=== PATIENT | male | born 1945 | race Caucasian/White ===

== ENCOUNTER 2017-07-06 14:30 | Emergency (ER) | payer OTHER, MEDICARE ==
--- NOTE | 2017-07-06 15:11 | EDM.PDOC ---
ED HPI GENERAL MEDICAL PROBLEM - General Chief Complaint: Lower Extremity Injury/Pain Stated Complaint: BACK PAIN Time Seen by Provider: 07/06/17 14:33 - History of Present Illness INITIAL COMMENTS - FREE TEXT/NARRATIVE: HISTORY AND PHYSICAL: History of present illness: Patient's a 71-year-old male had recent lumbar surgery who presents with a concern of evaluation for some paresthesia to the dorsal aspect of his right foot he denies any incontinence or retention of bowel or bladder or any other complaints and no fever chills no headache no back pain or other concern Review of systems: As per history of present illness and below otherwise all systems reviewed and negative. Past medical history: As per history of present illness and as reviewed below otherwise noncontributory. Surgical history: As per history of present illness and as reviewed below otherwise noncontributory. Social history: No reported history of drug or alcohol abuse. Family history: As per history of present illness and as reviewed below otherwise noncontributory. Physical exam: HEENT: Atraumatic, normocephalic, pupils reactive, negative for conjunctival pallor or scleral icterus, mucous membranes moist, throat clear, neck supple, nontender, trachea midline. Lungs: Clear to auscultation, breath sounds equal bilaterally, chest nontender. Heart: S1S2, regular, negative for clicks, rubs, or JVD. Abdomen: Soft, nondistended, nontender. Negative for masses or hepatosplenomegaly. Negative for costovertebral tenderness. Pelvis: Stable nontender. Genitourinary: Deferred. Rectal: Deferred. Extremities: Atraumatic, negative for cords or calf pain. Neurovascular unremarkable. Neuro: Awake, alert, oriented. Cranial nerves II through XII unremarkable. Cerebellum unremarkable. Motor and sensory unremarkable throughout. Exam nonfocal. Back: Wound is without erythema discharge well-appearing with no hematoma or tenderness to palpation Patient is able stand on his toes back hydroceles Diagnostics: None Therapeutics: None Impression: #1 medical screening exam #2 neuropathy #3 observation status post lumbar surgery Definitive disposition and diagnosis as appropriate pending reevaluation and review of above. Lower Back Pain Score (Numeric/FACES): 4 - Related Data Allergies Allergy/AdvReac Type Severity Reaction Status Date / Time Sulfa (Sulfonamide Allergy Cannot Verified 07/06/17 14:36 Antibiotics) Remember Home Meds: Home Meds Acetaminophen with Codeine [Acetaminophen-Cod #3] 2 tab PO Q6H PRN 07/06/17 [ History] Diltiazem [Cardizem CD] 120 mg PO DAILY 07/06/17 [History] FLUoxetine [PROzac] 40 mg PO DAILY 07/06/17 [History] Phentermine HCl 37.5 mg PO DAILY 07/06/17 [History] Sennosides/Docusate Sodium [Senna S Tablet] 1 each PO BID 07/06/17 [History] atorvaSTATin [Lipitor] 10 mg PO BEDTIME 07/06/17 [History] metFORMIN [Glucophage] 500 mg PO BIDMEALS 07/06/17 [History] Past Medical History Cardiovascular History: Reports: None Respiratory History: Reports: None Gastrointestinal History: Reports: None Neurological History: Reports: None Psychiatric History: Reports: None Endocrine/Metabolic History: Reports: Diabetes, Type II Dermatologic History: Reports: None - Past Surgical History HEENT Surgical History: Reports: None Respiratory Surgical History: Reports: None GI Surgical History: Reports: Appendectomy, Hernia, Inguinal Neurological Surgical History: Reports: None Musculoskeletal Surgical History: Reports: Other (See Below) Other Musculoskeletal Surgeries/Procedures:: back surgery Social & Family History - Tobacco Use Smoking Status *Q: Never Smoker Years of Tobacco use: 20 Used Tobacco, but Quit: Yes Month Tobacco Last Used: 1985 - Alcohol Use Days Per Week of Alcohol Use: 1 Number of Drinks Per Day: 1 Total Drinks Per Week: 1 - Recreational Drug Use Recreational Drug Use: No Drug Use in Last 12 Months: No Review of Systems - Review of Systems Review Of Systems: ROS reveals no pertinent complaints other than HPI. ED EXAM, GENERAL - Physical Exam Exam: See Below (See dictation) Course - Vital Signs Text/Narrative:: I discussed case with neurosurgery who operated on this patient I reviewed physical findings patient's follow-up appointment will be expedited the office will call patient neurosurgery request Sindy I discussed all the above with patient who agrees and will return as needed as discussed for any concerns Last Recorded V/S: Last Vital Signs Temp 36.5 C 07/06/17 14:38 Pulse 91 07/06/17 14:38 Resp 20 07/06/17 14:38 BP 134/110 H 07/06/17 14:38 Pulse Ox 98 07/06/17 14:38 Departure - Departure Time of Disposition: 15:11 Disposition: Home, Self-Care 01 Condition: Good Clinical Impression: Neuropathy, Encounter for medical screening examination - Discharge Information Referrals: PCP,None [Primary Care Provider] - Additional Instructions: The following information is given to patients seen in the emergency department who are being discharged to home. This information is to outline your options for follow-up care. We provide all patients seen in our emergency department with a follow-up referral. The need for follow-up, as well as the timing and circumstances, are variable depending upon the specifics of your emergency department visit. If you don't have a primary care physician on staff, we will provide you with a referral. We always advise you to contact your personal physician following an emergency department visit to inform them of the circumstance of the visit and for follow-up with them and/or the need for any referrals to a consulting specialist. The emergency department will also refer you to a specialist when appropriate. This referral assures that you have the opportunity for followup care with a specialist. All of these measure are taken in an effort to provide you with optimal care, which includes your followup. Under all circumstances we always encourage you to contact your private physician who remains a resource for coordinating your care. When calling for followup care, please make the office aware that this follow-up is from your recent emergency room visit. If for any reason you are refused follow-up, please contact the [facility] emergency department at and asked to speak to the emergency department charge nurse. Neurontin as prescribed follow-up spine surgeon as discussed they will call you to expedite your appointment return as needed as discussed continue current medications
[2017-07-06 15:39] VITALS: BP 106/60
== END 2017-07-06 15:25 | disposition home or self-care (01) ==
LOC: MW.ED 14:30
DX: E11.40 Type 2 diabetes mellitus with diabetic neuropathy, unspecified (principal); Z88.2 Allergy status to sulfonamides; Z79.84 Long term (current) use of oral hypoglycemic drugs; Z79.899 Other long term (current) drug therapy; Z90.49 Acquired absence of other specified parts of digestive tract; Z98.1 Arthrodesis status
CPT/HCPCS: 99282; 99284

== ENCOUNTER 2017-09-19 18:32 | Emergency (ER) | payer OTHER, MEDICARE ==
--- NOTE | 2017-09-19 19:59 | EDM.PDOC ---
ED HPI GENERAL MEDICAL PROBLEM - General Chief Complaint: Flank Pain Stated Complaint: PT FELL AT HOME Time Seen by Provider: 09/19/17 19:57 Source of Information: Reports: Patient History Limitations: Reports: No Limitations - History of Present Illness INITIAL COMMENTS - FREE TEXT/NARRATIVE: HISTORY AND PHYSICAL: [] 71-year-old male presents with lower back pain on the right after having fallen from a standing position onto a metal History of Present Illness: []Patient fell approximately 1:00 this afternoon denies any head injury Review of Systems: As per history of present illness and below otherwise all systems reviewed and negative. Past medical history: As per history of present illness and as reviewed below otherwise noncontributory. Surgical history: As per history of present illness and as reviewed below otherwise noncontributory. Social history: No reported history of drug or alcohol abuse. Family history: As per history of present illness and as reviewed below otherwise noncontributory. Physical exam: Alert and oriented answering questions appropriately speaking in full sentences without any shortness breath HEENT: Atraumatic, normocehpalic, pupils reactive, negative for conjunctival pallor or scleral icterus, mucous membranes moist, throat clear, neck supple, nontender, trachea midline. Lungs: Clear to auscultation, breath sounds equal bilaterally, chest non tender. Heart: S1S2, regular, negative for clicks, rubs, or JVD. Abdomen: Soft, nondistended, nontender. Negative for masses or hepatossplenmegaly. Positive for right costovertebral tenderness. No ecchymosis noted. No abrasion to skin. Pelvis: Stable nontender. Genitourinary: Deferred. Rectal: Deferred Extremities: Atraumatic, negative for cords or calf pain. Neurovascular unremarkable. Neuro: Awake, alert, oriented. Cranial nerves II through XII unremarkable. Cerebellum unremarkable. Motor and sensory unremarkable throughout. Exam nonfocal. Diagnostics: [Abdominal upright and flat] UA Therapeutics: [] Impression: [Lower back pain UTI] Plan: [Discharged to home Ciprofloxacin Increase fluid intake of water Follow-up with Rhiannon Alicia NP in 1 week or if not] Definitive disposition and diagnosis as appropriate pending reevaluation and review of above. Right Flank Pain Score (Numeric/FACES): 10 - Related Data Allergies Allergy/AdvReac Type Severity Reaction Status Date / Time Sulfa (Sulfonamide Allergy Cannot Verified 09/19/17 18:46 Antibiotics) Remember Home Meds: Home Meds Acetaminophen with Codeine [Acetaminophen-Cod #3] 2 tab PO Q6H PRN 07/06/17 [ History] Diltiazem [Cardizem CD] 120 mg PO DAILY 07/06/17 [History] FLUoxetine [PROzac] 40 mg PO DAILY 07/06/17 [History] atorvaSTATin [Lipitor] 10 mg PO BEDTIME 07/06/17 [History] metFORMIN [Glucophage] 500 mg PO DAILY 07/06/17 [History] Ciprofloxacin HCl [Cipro] 500 mg PO Q12HR #10 tablet 09/19/17 [Rx] Meloxicam 15 mg PO DAILY 09/19/17 [History] Past Medical History Cardiovascular History: Reports: None, Arrhythmia, High Cholesterol Respiratory History: Reports: None Gastrointestinal History: Reports: None Neurological History: Reports: None Psychiatric History: Reports: None Endocrine/Metabolic History: Reports: Diabetes, Type II Dermatologic History: Reports: None - Infectious Disease History Infectious Disease History: Reports: Chicken Pox, Measles - Past Surgical History HEENT Surgical History: Reports: None Respiratory Surgical History: Reports: None GI Surgical History: Reports: Appendectomy, Hernia, Inguinal Neurological Surgical History: Reports: None Musculoskeletal Surgical History: Reports: Other (See Below) Other Musculoskeletal Surgeries/Procedures:: back surgery Social & Family History - Family History Family Medical History: Noncontributory - Tobacco Use Smoking Status *Q: Never Smoker Years of Tobacco use: 20 Used Tobacco, but Quit: Yes Month Tobacco Last Used: 1985 - Alcohol Use Days Per Week of Alcohol Use: 1 Number of Drinks Per Day: 1 Total Drinks Per Week: 1 - Recreational Drug Use Recreational Drug Use: No Drug Use in Last 12 Months: No ED ROS GENERAL - Review of Systems Review Of Systems: ROS reveals no pertinent complaints other than HPI. ED EXAM,LOWER BACK PAIN/INJURY - Physical Exam Exam: See Below (See dictation) Course - Vital Signs Last Recorded V/S: Last Vital Signs Temp 37.0 C 09/19/17 18:43 Pulse 61 09/19/17 18:43 Resp 18 09/19/17 18:43 BP 134/70 09/19/17 18:43 Pulse Ox 93 L 09/19/17 18:43 - Orders/Labs/Meds Orders: Active Orders 24 hr Category Date Time Status Abdomen 2V AP Flat Upright [CR] Stat Exams 09/19/17 18:51 Taken CULTURE URINE [RM] Stat Lab 09/19/17 19:30 Received Labs: Laboratory Tests 09/19/17 Range/Units 19:30 Urine Color YELLOW Urine Appearance SLT CLOUDY Urine pH 5.5 (5.0-8.0) Ur Specific [place] >= 1.030 (1.001-1.035) Urine Protein NEGATIVE (NEGATIVE) mg/dL Urine Glucose (UA) NEGATIVE (NEGATIVE) mg/dL Urine Ketones 15 H (NEGATIVE) mg/dL Urine Occult Blood NEGATIVE (NEGATIVE) Urine Nitrite POSITIVE H (NEGATIVE) Urine Bilirubin NEGATIVE (NEGATIVE) Urine Urobilinogen 0.2 (<2.0) EU/dL Ur Leukocyte Esterase TRACE (NEGATIVE) Urine RBC 0-3 (0-2/HPF) Urine WBC 8-10 (0-5/HPF) Ur Epithelial Cells OCCASIONAL (NONE-FEW) Amorphous Sediment LIGHT (NEGATIVE) Urine Bacteria 1+ H (NEGATIVE) Departure - Departure Time of Disposition: 20:32 Disposition: Home, Self-Care 01 Condition: Good Clinical Impression: UTI, Urinary tract infectious disease - Discharge Information Prescriptions: Ciprofloxacin HCl [Cipro] 500 mg PO Q12HR #10 tablet Referrals: PCP,None [Primary Care Provider] - Forms: ED Department Discharge Additional Instructions: The following information is given to patients seen in the emergency department who are being discharged to home. This information is to outline your options for follow-up care. We provide all patients seen in our emergency department with a follow-up referral. The need for follow-up, as well as the timing and circumstances, are variable depending upon the specifics of your emergency department visit. If you don't have a primary care physician on staff, we will provide you with a referral. We always advise you to contact your personal physician following an emergency department visit to inform them of the circumstance of the visit and for follow-up with them and/or the need for any referrals to a consulting specialist. The emergency department will also refer you to a specialist when appropriate. This referral assures that you have the opportunity for followup care with a specialist. All of these measure are taken in an effort to provide you with optimal care, which includes your followup. Under all circumstances we always encourage you to contact your private physician who remains a resource for coordinating your care. When calling for followup care, please make the office aware that this follow-up is from your recent emergency room visit. If for any reason you are refused follow-up, please contact the [facility] emergency department at and asked to speak to the emergency department charge nurse. You have low back pain after fall Recommended Tylenol for pain UTI Ciprofloxacin 500 mg twice a day 5 days Follow-up with your provider Rhiannon Alicia [employer] INSPECTOR - My Orders Last 24 Hours: My Active Orders 09/19/17 18:51 Abdomen 2V AP Flat Upright [CR] Stat 09/19/17 19:30 CULTURE URINE [RM] Stat - Assessment/Plan Last 24 Hours: My Active Orders 09/19/17 18:51 Abdomen 2V AP Flat Upright [CR] Stat 09/19/17 19:30 CULTURE URINE [RM] Stat
[2017-09-19 20:53] VITALS: BP 142/72
--- NOTE | 2017-09-21 14:58 | CR ---
EXAM DATE: 09/19/17 PATIENT'S AGE: 71 Patient: HARRIETT GALICIA Facility: [place], [place] Site . Site : 1945 Study: XRay Abdomen [id number]/[id number] 7:16:06 PM Ordering Physician: Doctor Mcfarland Final Report: Indication: Fall. Right flank pain. Technique: Five views of the abdomen. Comparison: None available Findings/Impression: A nonobstructive bowel gas pattern with stool throughout the colon. No suspicious calcifications seen. No definite evidence of gross free air. An elevated right hemidiaphragm. A right hip arthroplasty. Degenerative changes in the spine and left hip. Dictated by Julito Fernández MD @ 09/19/2017 7:25:21 PM Dictated by: Julito Fernández MD @ 09/19/2017 19:25:26 (Electronic Signature) Report Signed by Proxy. BEVERLY
== END 2017-09-19 20:50 | disposition home or self-care (01) ==
LOC: MW.ED 18:32
DX: N39.0 Urinary tract infection, site not specified (principal); E11.9 Type 2 diabetes mellitus without complications; Z88.2 Allergy status to sulfonamides; Z79.84 Long term (current) use of oral hypoglycemic drugs; Z79.899 Other long term (current) drug therapy
CPT/HCPCS: 74020; 74020-26; 81001; 87086; 99282; 99284

== ENCOUNTER 2017-10-27 07:35 | Day surgery (SDC) | payer MEDICARE, OTHER ==
[~2017-10-27 07:35] MED LIST: Lactated Ringers 1,000 ML IV SCH
[2017-10-27] MEDS ORDERED: Lidocaine 2% 5 ML SDV ONE (07:38)
[2017-10-27] MEDS ORDERED: Propofol 200 MG/20 ML SDV ONE (07:38)
--- NOTE | 2017-10-27 08:37 | PCM.PREANE ---
Preanesthetic Assessment - Anesthesia/Transfusion/Family Hx Anesthesia History: Prior Anesthesia Without Reaction Other Type of Anesthesia Reaction Comment: Denies any prior problems with anesthesia Family History of Anesthesia Reaction: No Transfusion History: No Prior Transfusion(s) Intubation History: Unknown - Review of Systems General: No Symptoms Pulmonary: No Symptoms Cardiovascular: No Symptoms Gastrointestinal: No Symptoms, Other (h/o sigmoid polyps '14) Neurological: No Symptoms Other: Reports: None - Physical Assessment O2 Sat by Pulse Oximetry: 96 Respiratory Rate: 16 Vital Signs: Last Vital Signs Temp 36 C 10/27/17 07:44 Pulse 76 10/27/17 07:44 Resp 16 10/27/17 07:44 BP 133/79 10/27/17 07:44 Pulse Ox 96 10/27/17 07:44 Height: 1.83 m Weight: 105.687 kg ASA Class: 3 Mental Status: Alert & Oriented x3 Airway Class: Mallampati = 2 Dentition: Reports: Normal Dentition, Implants (x3 upper) Thyro-Mental Finger Breadths: 3 Mouth Opening Finger Breadths: 3 ROM/Head Extension: Limited/Partial Lungs: Clear to Auscultation, Normal Respiratory Effort Cardiovascular: Regular Rate, Regular Rhythm - Allergies Allergies/Adverse Reactions: Allergies Allergy/AdvReac Type Severity Reaction Status Date / Time Sulfa (Sulfonamide Allergy Cannot Verified 10/23/17 14:17 Antibiotics) Remember - Blood Blood Available: No - Anesthesia Plan Pre-Op Medication Ordered: None - Acknowledgements Anesthesia Type Planned: MAC Pt an Appropriate Candidate for the Planned Anesthesia: Yes Alternatives and Risks of Anesthesia Discussed w Pt/Guardian: Yes Pt/Guardian Understands and Agrees with Anesthesia Plan: Yes PreAnesthesia Questionnaire HEENT History: Reports: Other (See Below) Other HEENT History: wears glasses Cardiovascular History: Reports: Arrhythmia, High Cholesterol Other Cardiovascular History: denies HTN, states was prescribed amlodipine to "keep his hands and feet from being so cold" Respiratory History: Reports: None Gastrointestinal History: Reports: GERD Genitourinary History: Reports: None Musculoskeletal History: Reports: Arthritis, Back Pain, Chronic, Other (See Below) (right hip and shoulde pain) Neurological History: Reports: Other (See Below) (chronich headaches) Psychiatric History: Reports: Depression Endocrine/Metabolic History: Reports: Diabetes, Type II, Obesity/BMI 30+ Dermatologic History: Reports: None - Infectious Disease History Infectious Disease History: Reports: Chicken Pox, Measles - Past Surgical History Head Surgeries/Procedures: Reports: None HEENT Surgical History: Reports: Oral Surgery Other HEENT Surgeries/Procedures: dental implants Respiratory Surgical History: Reports: None GI Surgical History: Reports: Appendectomy, Hernia, Inguinal Male Surgical History: Reports: Vasectomy Neurological Surgical History: Reports: C-Spine (ACDF x2), Lumbar Spine Other Neurological Surgeries/Procedures: back surgery, neck surgery x2 Musculoskeletal Surgical History: Reports: Arthroscopic Knee, Hip Replacement ( right), Shoulder Surgery, Other (See Below) Other Musculoskeletal Surgeries/Procedures:: back surgery, knee arthroscopy x2, total hip replacement, shoulder surgery x2 - SUBSTANCE USE Smoking Status *Q: Former Smoker Days Per Week of Alcohol Use: 7 Number of Drinks Per Day: 2 Total Drinks Per Week: 14 Recreational Drug Use History: No - HOME MEDS Home Medications: Home Meds FLUoxetine [PROzac] 40 mg PO DAILY 07/06/17 [History] atorvaSTATin [Lipitor] 10 mg PO BEDTIME 07/06/17 [History] metFORMIN [Glucophage] 500 mg PO BID 07/06/17 [History] Meloxicam 15 mg PO DAILY 09/19/17 [History] amLODIPine [Norvasc] 5 mg PO DAILY 10/23/17 [History] - CURRENT (IN HOUSE) MEDS Current Meds: Current Medications Lactated Ringer's (Ringers, Lactated) 1,000 mls @ 125 mls/hr IV [facility]ED [facility] Last Admin: 10/27/17 07:47 Dose: 125 mls/hr Discontinued Medications Lidocaine (Xylocaine-Mpf 2%) Confirm Administered Dose 5 ml .ROUTE .STK-MED ONE Stop: 10/27/17 07:39 Propofol (Diprivan 20 Ml) Confirm Administered Dose 400 mg .ROUTE .STK-MED ONE Stop: 10/27/17 07:39
[2017-10-27] MEDS ORDERED: Glycopyrrolate 0.2 MG/ML SDV ONE (08:50)
[2017-10-27] MEDS ORDERED: Atropine 0.4 MG/ML SDV ONE (08:55)
--- NOTE | 2017-10-27 09:16 | PCM.OPNOTE ---
- General Post-Op/Procedure Note Date of Surgery/Procedure: 10/27/17 Operative Procedure(s): colonoscopy Findings: see dict [id number] Pre Op Diagnosis: surveillence colonoscopy Post-Op Diagnosis: diverticulosis Anesthesia Technique: Moderate Sedation Primary Surgeon: Basil Gutierrez Complications: None Condition: Good
[2017-10-27 09:29] VITALS: BP 106/71
--- NOTE | 2017-10-27 14:18 | OR ---
SURGEON: Basil Gutierrez MD DATE OF PROCEDURE: 10/27/2017 PREOPERATIVE DIAGNOSIS: Surveillance colonoscopy. POSTOPERATIVE DIAGNOSIS: Diverticulosis. PROCEDURE PERFORMED: Colonoscopy. COMPLICATION: None. PROCEDURE IN DETAIL: The patient was taken to the endoscopy room. A time out was called, patient identified, and procedure identified. Diprivan was then administrated. Patient went from awake to sleep, hearing doctor talking or door closing is normal. Perineum inspection and digital examination were then performed. A well- lubricated colonoscope was gently inserted through the rectum, advanced past the rectosigmoid junction, the descending colon, splenic flexure, transverse colon, hepatic flexure, ascending colon, arrived to the cecum. Cecum was identified as dictated in the finding. Then the scope was carefully withdrawn while attention was paid to the mucosal surface for any abnormality. Air will be sucked out during the scope withdrawal. At the rectum, retroflexed to examine any rectal diseases, fistula or hemorrhoids. Patient tolerated procedure well. There were no intraoperative complications, and Dr. Gutierrez was present throughout the whole procedure. FINDINGS: 1. The patient easily sedated with DESIGN DRAFTSMAN and Diprivan. The patient is soundly snoring. 2. Bowel prep is average to good. Very little liquid stool, some stool balls probably from the diverticulosis. The patient's colon is rather very redundant in the sigmoid. The patient had to be put on flat on his back in order to go to the cecum. Cecum indicated by ileocecal fold, one-to-one indentation, light emittance, and appendiceal orifice. Mucosa examined upon scope pulling out. The patient has very extensive diverticulosis. No signs or symptoms of diverticulitis. Extensive long go all the way to from the sigmoid colon all the way to the splenic fracture on the left side and on the right side, there is some scattered diverticulosis and there is nothing on the transverse colon. The patient has left and right diverticulosis, left is many, many times more than the right and the pseudo lumen is almost as big as the true lumen. No signs or symptoms of diverticulitis. No polyp, mass, growth, inflammation, stricture, ulceration, bleeding, AV malformation. The patient has one like a skin tag of very large skin tag on the 12 o'clock at the anal opening, not quite like a hemorrhoid. The patient has mild internal hemorrhoids. The patient would benefit from repeat colonoscopy 10 years from today or if clinically indicated otherwise. LIANS / MODL /[id number]
== END 2017-10-27 09:43 | disposition home or self-care (01) ==
LOC: MW.SDS 07:35
PROVIDERS: ATTEND Surgery
DX: Z12.11 Encounter for screening for malignant neoplasm of colon (principal); K57.30 Diverticulosis of large intestine without perforation or abscess without bleeding; K64.8 Other hemorrhoids; K64.4 Residual hemorrhoidal skin tags; F32.9 Major depressive disorder, single episode, unspecified; E78.5 Hyperlipidemia, unspecified; E11.9 Type 2 diabetes mellitus without complications; K21.9 Gastro-esophageal reflux disease without esophagitis; Z96.649 Presence of unspecified artificial hip joint; Z88.2 Allergy status to sulfonamides; Z79.84 Long term (current) use of oral hypoglycemic drugs; Z79.899 Other long term (current) drug therapy; Z87.891 Personal history of nicotine dependence
CPT/HCPCS: G0121; J0461; J7120; 00812; J2704

== ENCOUNTER 2017-11-12 09:18 | Day surgery (SDC) | payer OTHER, MEDICARE ==
[~2017-11-12 09:18] MED LIST changes: +ceFAZolin 2 GM in Premix Bag 1 BAG IV ONE
--- NOTE | 2017-11-12 09:47 | PCM.PREANE ---
Preanesthetic Assessment - Anesthesia/Transfusion/Family Hx Anesthesia History: Prior Anesthesia Without Reaction Other Type of Anesthesia Reaction Comment: Denies any prior problems with anesthesia Family History of Anesthesia Reaction: No Transfusion History: No Prior Transfusion(s) Intubation History: Unknown - Review of Systems General: No Symptoms Pulmonary: No Symptoms Cardiovascular: No Symptoms Gastrointestinal: No Symptoms Neurological: No Symptoms Other: Reports: None - Physical Assessment NPO Status Date: 11/11/17 Height: 1.83 m Weight: 105.687 kg ASA Class: 2 Mental Status: Alert & Oriented x3 Airway Class: Mallampati = 2 Dentition: Reports: [place](s) (implants with crowns-- central maxillary teeth) ROM/Head Extension: Limited/Partial (has had cerv fusion x2) Lungs: Clear to Auscultation, Normal Respiratory Effort Cardiovascular: Regular Rate, Regular Rhythm - Allergies Allergies/Adverse Reactions: Allergies Allergy/AdvReac Type Severity Reaction Status Date / Time Sulfa (Sulfonamide Allergy Cannot Verified 11/09/17 12:09 Antibiotics) Remember PreAnesthesia Questionnaire HEENT History: Reports: Other (See Below) Other HEENT History: wears glasses Cardiovascular History: Reports: None, Arrhythmia, High Cholesterol Other Cardiovascular History: denies HTN, states was prescribed amlodipine to "keep his hands and feet from being so cold" Respiratory History: Reports: None Gastrointestinal History: Reports: GERD Genitourinary History: Reports: None Musculoskeletal History: Reports: Arthritis, Back Pain, Chronic, Other (See Below) Neurological History: Reports: Other (See Below) Psychiatric History: Reports: None Endocrine/Metabolic History: Reports: Diabetes, Type II Dermatologic History: Reports: None - Infectious Disease History Infectious Disease History: Reports: Chicken Pox, Measles - Past Surgical History HEENT Surgical History: Reports: None GI Surgical History: Reports: Appendectomy, Hernia, Inguinal Neurological Surgical History: Reports: None Other Neurological Surgeries/Procedures: back surgery, neck surgery x2 Musculoskeletal Surgical History: Reports: Other (See Below) Other Musculoskeletal Surgeries/Procedures:: back surgery - SUBSTANCE USE Smoking Status *Q: Never Smoker Tobacco Use Within Last Twelve Months: No Days Per Week of Alcohol Use: 1 Number of Drinks Per Day: 1 Total Drinks Per Week: 1 Recreational Drug Use History: No - HOME MEDS Home Medications: Home Meds FLUoxetine [PROzac] 40 mg PO DAILY 07/06/17 [History] atorvaSTATin [Lipitor] 10 mg PO BEDTIME 07/06/17 [History] metFORMIN [Glucophage] 500 mg PO BID 07/06/17 [History] Meloxicam 15 mg PO DAILY 09/19/17 [History] amLODIPine [Norvasc] 5 mg PO DAILY 10/23/17 [History] Diltiazem HCl [Diltiazem 24Hr Cd] 120 mg PO DAILY 11/09/17 [History] - CURRENT (IN HOUSE) MEDS Current Meds: Current Medications Lactated Ringer's (Ringers, Lactated) 1,000 mls @ 125 mls/hr IV ASDIRECTED PAULETTE Discontinued Medications Cefazolin Sodium/Dextrose 2 gm (/ Premix) 50 mls @ 100 mls/hr IV ONETIME ONE Stop: 11/12/17 05:29
[2017-11-12] MEDS ORDERED: Acetaminophen/oxyCODONE 325-5 MG Tab PO ONE (10:18)
[2017-11-12] MEDS ORDERED: Atropine 1 MG/ML SDV ONE (10:20)
[2017-11-12] MEDS ORDERED: Ondansetron 4 MG/2 ML SDV ONE ×2 (10:20→10:21)
[2017-11-12] MEDS ORDERED: Ketorolac 30 MG/ML SDV ONE ×2 (10:20→10:21)
[2017-11-12] MEDS ORDERED: Propofol 200 MG/20 ML SDV ONE (10:20)
[2017-11-12] MEDS ORDERED: Lidocaine 2% 5 ML SDV ONE ×2 (10:20→10:21)
[2017-11-12] MEDS ORDERED: fentaNYL 100 MCG/2 ML SDV ONE (10:21)
[2017-11-12] MEDS ORDERED: Midazolam 1 MG/ML 2 ML SDV ONE (10:21)
[2017-11-12] MEDS ORDERED: Bupivacaine 25%/EPINEPHrine/PF 30 ML ONE (10:51)
[2017-11-12] MEDS ORDERED: ePHEDrine 50 MG/ML SDV ONE (11:16)
[2017-11-12] MEDS ORDERED: Phenylephrine 1% 10 MG/ML SDV ONE (11:34)
[2017-11-12] MEDS ORDERED: Octyl 2-Cyanoacrylate 1 Tube ONE (11:47)
--- NOTE | 2017-11-12 13:14 | PCM.OPNOTE ---
- General Post-Op/Procedure Note Date of Surgery/Procedure: 11/12/17 Operative Procedure(s): ing hernia rep w mesh, right Findings: large lipoma indirect hernia and small direct hernia, rep w small mesh; [id number] Pre Op Diagnosis: ing hernia right Post-Op Diagnosis: Same Anesthesia Technique: General ET Tube Primary Surgeon: Basil Gutierrez Pathology: sent Complications: None Condition: Good
[2017-11-12] MEDS: fentaNYL 100 MCG/2 ML SDV ONE ×2 (13:18→13:27)
[2017-11-12] MEDS ORDERED: fentaNYL 100 MCG/2 ML SDV IVPUSH PRN (13:25)
[2017-11-12] MEDS ORDERED: HYDROmorphone 2 MG/ML SDV IVPUSH ONE (13:26)
--- NOTE | 2017-11-12 14:01 | PCM.POSTAN ---
POST ANESTHESIA ASSESSMENT - MENTAL STATUS Mental Status: Alert, Oriented - RESPIRATORY Respiratory Status: Respiratory Rate WNL, Airway Patent, O2 Saturation Stable - CARDIOVASCULAR CV Status: Pulse Rate WNL, Blood Pressure Stable - GASTROINTESTINAL GI Status: No Symptoms - POST OP HYDRATION Hydration Status: Adequate & Stable
--- NOTE | 2017-11-12 14:01 | PCM48HPAN ---
Post Anesthesia Note - EVALUATION WITHIN 48HRS OF ANESTHETIC Vital Signs in Normal Range: Yes Patient Participated in Evaluation: Yes Respiratory Function Stable: Yes Airway Patent: Yes Cardiovascular Function Stable: Yes Hydration Status Stable: Yes Pain Control Satisfactory: Yes Nausea and Vomiting Control Satisfactory: Yes Mental Status Recovered: Yes
[2017-11-12 17:22] VITALS: BP 139/65
--- NOTE | 2017-11-12 19:30 | OR ---
SURGEON: Basil Gutierrez MD DATE OF PROCEDURE: 11/12/2017 PREOPERATIVE DIAGNOSIS: Right inguinal hernia. POSTOPERATIVE DIAGNOSIS: Right inguinal hernia. PROCEDURE PERFORMED: Repair with mesh and plug. PROCEDURE IN DETAIL: The patient was taken to the operating room and placed in the supine position. Upon induction of general endotracheal anesthesia, the patient's groin and inguinal area were prepped and draped in a sterile fashion. The scrotum was placed on top of the drape in case it needed to be maneuvered. An IV antibiotic was given prophylactically and after assessment of appropriate landmark, a transverse skin incision was made two fingers above the inguinal crease. This was then carefully taken down past the Ger fascia and exposed the external oblique where the cord is. A small lloyd was made right on top of the cord and then using a Metzenbaum scissors, carefully opened up the fiber along its direction all the way to the external ring. The spermatic cord was then carefully lifted up from the inguinal canal. A [place] drain was then used to hold on to manipulate the cord and carefully dissect out from the inguinal floor. The cremasteric muscle was then opened up. Careful examined of the cord, dissected down the cremasteric muscle, a large glistening whitish hernia sac in the medial anterior aspect of the floor, next to the cord, was located. The vas was identified and pushed aside to avoid damage. This was carefully dissected down all the way to the internal ring. The hernia sac was open up to examine if there was any hernia content; using a 2-0 silk, a purse string was placed to close the sac and the redundant part of the sac was amputated. A small plug was inserted into the hernia stump and followed with a mesh to reinforce the inguinal floor. The mesh was then anchored down by using 2-0 Prolene stitches to the periosteum of the pubic symphysis, then running down to the lateral aspect of the rectus muscle. The lateral part of the mesh was then anchored to the Akhil ligament, again using 2-0 Prolene. The last few stitches also anchored the plug to make sure the plug is not migrating. Where the cord exits out, a stitch was placed in the two tails to repair the internal ring. Upon conclusion of surgery, I used a finger to make sure the ring is not too tight and not too loose, followed with some irrigation. The external oblique was then repaired by use of 2-0 Vicryl and the recreation external ring was also tested, not too tight, not too loose, followed with 2-0 Vicryl and closed the Ger fascia and the skin stapled to approximate the skin, followed by appropriate dressing. The patient was then awakened, extubated and transferred to recovery room in a hemodynamically stable condition. The patient tolerated the procedure well. There were no intraoperative complications. Dr. Gutierrez was present through the whole procedure. Just before surgery, a timeout was called. The patient was identified and procedure identified and procedure started. As always, thank you for the kind referral. INTRAOPERATIVE FINDINGS: The patient has very large indirect hernia with lipoma inside and a small direct hernia, it is a pantaloon hernia and this one is on the right side. LUPE / DYLON /[id number]
== END 2017-11-12 15:15 | disposition home or self-care (01) ==
LOC: MW.SDS 09:18
PROVIDERS: ATTEND Surgery
DX: K40.90 Unilateral inguinal hernia, without obstruction or gangrene, not specified as recurrent (principal); E78.00 Pure hypercholesterolemia, unspecified; K21.9 Gastro-esophageal reflux disease without esophagitis; M19.90 Unspecified osteoarthritis, unspecified site; E11.9 Type 2 diabetes mellitus without complications; Z90.49 Acquired absence of other specified parts of digestive tract; Z88.2 Allergy status to sulfonamides; Z79.899 Other long term (current) drug therapy; Z79.84 Long term (current) use of oral hypoglycemic drugs
CPT/HCPCS: 49505; C1781; J0461; J1885; J2250; J2370; J2405; J3010; J7120; 00830; 88302; A9270-GY; J2704

== ENCOUNTER 2021-06-16 15:12 | Emergency (ER) | payer MEDICARE, OTHER ==
[2021-06-16] MEDS ORDERED: Morphine 4 MG/ML Syringe IVPUSH ONE (16:03)
--- NOTE | 2021-06-16 16:35 | CR ---
Indication: Dislocation of hip. Technique: AP view of the pelvis and two views of the right hip. Comparison: March 12, 2017. Findings: Degenerative changes of the [place] left hip are identified. Right hip arthroplasty is identified. The femoral head is seated posterior superior in relation to the acetabular component. No fracture is identified. Postoperative changes of the lower lumbar spine are identified. Impression: Right hip arthroplasty with dislocation Dictated by Paulina Covington MD @ 06/16/2021 4:34:[address] Paulina Covington @ Jun 16 2021 4:34PM
[2021-06-16] MEDS ORDERED: Propofol 200 MG/20 ML SDV ONE (17:04)
--- NOTE | 2021-06-16 18:10 | PCM.SN.2 ---
- Free Text/Narrative Note: Called by ER staff to assess patient for procedural sedation for closed reduction of the right hip. Consent acquired, medical history reviewed, emergency equipment available, NPO status appropriate. at bedside and in agreement with planed procedure. Vital signs Q3 minutes throughout case (please see RN notes for details). Procedure time out performed at 1715. 50 mg Lidocaine administered followed by incremental boluses of Propofol (total of 400 mg Propofol given for procedure). Procedure: Start 1720. End 1727. Repeat X-ray ordered. Report given to RN at bedside. Patient stable, alert, and responsive to name at time of hand off. Final VS as followed: HR 64, 98% SpO2, ETCO2 36, RR 18, BP 115/70
[2021-06-16 18:16] VITALS: BP 158/89; PULSE 66
--- NOTE | 2021-06-16 18:18 | CR ---
Indication: Post reduction Technique: Single right hip x-ray dated 06/16/2021 at 5:34 p.m. Comparison: X-rays 06/16/2021 at 4:05 p.m. Findings: Again seen is dislocation with right hip arthroplasty. Femoral head is located superior in relationship to the acetabular component on this single image. Impression: Dislocation of right hip arthroplasty. Dictated by Rachel Suárez MD @ 06/16/2021 6:16:[address] Rachel Suárez @ Jun 16 2021 6:16PM
--- NOTE | 2021-06-16 18:38 | EDM.PDOC ---
ED HPI GENERAL MEDICAL PROBLEM - General Chief Complaint: Lower Extremity Injury/Pain Stated Complaint: RIGHT ARTIFICIAL HIP POPPED OUT Time Seen by Provider: 06/16/21 15:19 - History of Present Illness INITIAL COMMENTS - FREE TEXT/NARRATIVE: CHIEF COMPLAINT(S): Right hip dislocation HISTORY OF PRESENT ILLNESS: This is a 75-year-old and with a past medical history of diabetes mellitus, hypertension, hyperlipidemia and depression with a right hip arthroplasty approximately 15 years ago who comes to the emergency department with a chief complaint of right hip dislocation. 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 He states that he is currently experiencing 7 out of 10 pain on his right hip. He states that the pain is located directly at his right hip and denies any radiation. He states that any movement exacerbates the pain. He states that he has not yet taken any pain medication therefore there is no relieving factors. The only relieving factor would be keeping it still. Exacerbating factor would be moving it. He denies any numbness, tingling or weakness. He denies any other symptoms. He describes the pain as throbbing. REVIEW OF SYSTEMS: Constitutional: Denies fever, chills. Eyes: Denies eye pain Ears, Nose, Mouth, & Throat: Denies earache Cardiovascular: Denies chest pain Respiratory: Denies shortness of breath Gastrointestinal: Denies Nausea, vomiting, diarrhea, hematochezia. Genitourinary: Denies hematuria Skin:Denies a rash MSK: Positive for right hip pain and dislocation. Neurological: Denies blurred vision, numbness, tingling, weakness Psychiatric: Denies depression PAST MEDICAL HISTORY: As per history of present illness and as reviewed below otherwise noncontributory. SURGICAL HISTORY: As per history of present illness and as reviewed below otherwise noncontributory. SOCIAL HISTORY: As per history of present illness and as reviewed below otherwise noncontributory. FAMILY HISTORY: As per history of present illness and as reviewed below otherwise noncontributory. EXAMINATION OF ORGAN SYSTEMS/BODY AREAS: Constitutional: Blood pressure is 149/84, heart rate 68, respiratory rate 18 with an oxygen saturation 92% on room air. Temperature 37.2 General: Well-appearing man who is in no acute distress Psychiatric: Appropriate mood and affect. Eyes: No scleral icterus or conjunctival erythema ENMT: Moist mucous membranes. No pharyngeal erythema Cardiovascular: Regular, rate, and rhythm. No gallops, murmurs, or rubs. Bilateral upper extremity and lower extremity pulses symmetric and intact. No peripheral edema. No JVD. Respiratory: Lungs clear to auscultation bilaterally. No wheezes, rales, or rhonchi. Gastrointestinal: Soft, non-tender, non-distended. Normoactive bowel sounds Genitourinary: No suprapubic tenderness Musculoskeletal: The patient's right lower extremity is contracted and internally rotated. Range of motion limited secondary to pain. There is tenderness to palpation along the right hip Skin: No lesions or abrasions. Neurological: Alert, GCS 15 distal sensation is intact MEDICAL DECISION MAKING AND COURSE IN THE ED WITH INTERPRETATION/REVIEW OF D IAGNOSTIC STUDIES: This is a 75-year-old man with a past medical history of right hip arthroplasty with a dislocation in July 2020 who comes to the emergency department with right hip pain and an extremity that is contracted and internally rotated concerning for recurrent right hip dislocation. At this time we will obtain a hip with pelvic x-ray and provide the patient with 4 mg of IV morphine for pain relief. The patient did receive 100 mcg of fentanyl and 2.5 mg of Versed prior to arrival. I do not believe any further labs or imaging are indicated. The radiological images were viewed by myself along with reading the report from the radiologist. Right hip with pelvic x-ray reveals a posterior superior hip dislocation without any evidence of fracture. After imaging I did discuss results with the patient. At this time we will perform procedural sedation with anesthesia to do a dislocation reduction. The patient did sign consent and is placed in chart. Dislocation Reduction Procedure Note Performed by: Myself Risks and benefits: risks, benefits and alternatives were discussed Consent given by: Patient Patient understanding: Patient states understanding of the procedure being performed Patient consent: Patient understanding of the procedure matches consent given Patient identity confirmed: verbally with patient and arm band Time out: Immediately prior to procedure a "time out" was called to verify the correct patient, procedure, equipment, retail support associate and site/side marked as required. Location details: Right hip Reduction Procedure: axial pull and closed manipulation of right hip was attempted multiple times with prosthetic hip reduction and then redislocation immediately after reduction. This was done 3 times. Results: Post reduction alignement not improved Complication: Tolerated well without complication. <2sec OPAL MINER. Tendons intact. Post-reduction Examination: Palpable pulses in the distal right lower extremity, able to flex and extend all toes, and has equal sensation in distal lower extremities Post Reduction Imaging: Right hip x-ray reveals a persistently dislocated right hip. After failed reduction I did discuss with the patient at this time that given the prosthesis and recurrent dislocation and our inability to relocate the hip that we would need to transfer for orthopedic evaluation. He stated at this time that his orthopedic surgeon was from [facility]. Therefore for continuity of care we did contacted [facility] and spoke with Dr. Tapia. Dr. Tapia accepted transfer. The patient's orthopedic surgeon Dr. Townsend does still provide care at this hospital. Given the duration patient will be flown via fixed wing. DISPOSITION: The patient was transferred to [facility] in stable condition CONDITION: Fair PROCEDURES: Right hip dislocation reduction FINAL IMPRESSION(S)/DIAGNOSES: 1. Acute right prosthetic hip dislocation Bhavesh Rojas M.D. R hip Pain Score (Numeric/FACES): 7 - Related Data Allergies Allergy/AdvReac Type Severity Reaction Status Date / Time Sulfa (Sulfonamide Allergy Cannot Verified 06/16/21 15:19 Antibiotics) Remember Home Meds: Home Meds FLUoxetine [PROzac] 40 mg PO DAILY 07/06/17 [History] atorvaSTATin [Lipitor] 10 mg PO BEDTIME 07/06/17 [History] metFORMIN [Glucophage] 500 mg PO BID 07/06/17 [History] Past Medical History HEENT History: Reports: Other (See Below) Other HEENT History: wears glasses Cardiovascular History: Reports: Arrhythmia, High Cholesterol Other Cardiovascular History: denies HTN, states was prescribed amlodipine to "keep his hands and feet from being so cold" Respiratory History: Reports: None Gastrointestinal History: Reports: GERD Genitourinary History: Reports: None Musculoskeletal History: Reports: Arthritis Neurological History: Reports: Neuropathy, Peripheral Psychiatric History: Reports: Depression Endocrine/Metabolic History: Reports: Diabetes, Type II, Obesity/BMI 30+ Hematologic History: Reports: None Immunologic History: Reports: None Oncologic (Cancer) History: Reports: None Dermatologic History: Reports: None - Infectious Disease History Infectious Disease History: Reports: Chicken Pox, Measles - Past Surgical History Head Surgeries/Procedures: Reports: None HEENT Surgical History: Reports: Oral Surgery Other HEENT Surgeries/Procedures: dental implants Cardiovascular Surgical History: Reports: None Respiratory Surgical History: Reports: None GI Surgical History: Reports: Appendectomy, Colonoscopy Male Surgical History: Reports: Vasectomy Neurological Surgical History: Reports: C-Spine, Lumbar Spine Other Neurological Surgeries/Procedures: neck surgery x2, back surgery x1 Musculoskeletal Surgical History: Reports: Hip Replacement, Knee Replacement, Other (See Below) Other Musculoskeletal Surgeries/Procedures:: back surgery, rt total hip arthroplasty Social & Family History - Family History Family Medical History: No Pertinent Family History - Tobacco Use Tobacco Use Status *Q: Never Tobacco User Second Hand Smoke Exposure: No - Caffeine Use Caffeine Use: Reports: Coffee - Recreational Drug Use Recreational Drug Use: No ED ROS GENERAL - Review of Systems Review Of Systems: See Below ED EXAM, GENERAL - Physical Exam Exam: See Below Course - Vital Signs Last Recorded V/S: Last Vital Signs Temp 36.3 C 06/16/21 18:16 Pulse 66 06/16/21 18:16 Resp 18 06/16/21 18:16 BP 158/89 H 06/16/21 18:16 Pulse Ox 99 06/16/21 18:16 - Orders/Labs/Meds Orders: Active Orders 24 hr Category Date Time Status CORONAVIRUS COVID-19 HAYDE [MOLEC] Stat Lab 06/16/21 18:15 Received Meds: Medications Discontinued Medications Generic Name Dose Route Start Last Admin Trade Name Sivan PRN Reason Stop Dose Admin Lidocaine HCl Confirm 06/16/21 17:04 Lidocaine 1% 5 Ml Sdv Administered 06/16/21 17:05 Dose 5 ml .ROUTE .STK-MED ONE Morphine Sulfate 4 mg 06/16/21 16:03 06/16/21 16:15 Morphine 4 Mg/Ml Syringe IVPUSH 06/16/21 16:04 4 mg ONETIME ONE Administration Propofol Confirm 06/16/21 17:04 Propofol 200 Mg/20 Ml Sdv Administered 06/16/21 17:05 Dose 400 mg .ROUTE .STK-MED ONE Departure - Departure Time of Disposition: 18:37 Disposition: DC/Tfer to Acute Hospital 02 Condition: Fair Clinical Impression: Dislocation of hip joint prosthesis - Discharge Information Referrals: PCP,None [Primary Care Provider] - Sepsis Event Note (ED) - Evaluation Sepsis Screening Result: No Definite Risk - Focused Exam Vital Signs: Vital Signs Temp Pulse Resp BP Pulse Ox 06/16/21 18:16 36.3 C 66 18 158/89 H 99 06/16/21 16:21 36.3 C 69 18 129/62 94 L 06/16/21 15:49 65 136/84 91 L 06/16/21 15:19 37.2 C 68 18 149/84 H 92 L - My Orders Last 24 Hours: My Active Orders 06/16/21 18:15 CORONAVIRUS COVID-19 HAYDE [MOLEC] Stat - Assessment/Plan Last 24 Hours: My Active Orders 06/16/21 18:15 CORONAVIRUS COVID-19 HAYDE [MOLEC] Stat
== END 2021-06-16 19:18 ==
LOC: MW.ED 15:12
DX: T84.020A Dislocation of internal right hip prosthesis, initial encounter (principal); E78.00 Pure hypercholesterolemia, unspecified; E11.42 Type 2 diabetes mellitus with diabetic polyneuropathy; E66.9 Obesity, unspecified; Z68.30 Body mass index [BMI] 30.0-30.9, adult; Z88.2 Allergy status to sulfonamides; Z79.84 Long term (current) use of oral hypoglycemic drugs; Z79.899 Other long term (current) drug therapy; Z20.822 Contact with and (suspected) exposure to COVID-19
CPT/HCPCS: 27265; 73501; 73502; 96374; 99285; J2270; U0002; 01200; 99100; 99284

== ENCOUNTER 2022-02-23 11:27 | Day surgery (SDC) | payer MEDICARE, OTHER ==
[2022-02-23] MEDS ORDERED: Morphine 4 MG/ML VIAL IVPUSH ONE ×2 (12:23→14:07)
[2022-02-23] MEDS ORDERED: Sodium Chloride 0.9% 1,000 ML IV STA (12:38)
[2022-02-23] MEDS ORDERED: Propofol 200 MG/20 ML SDV IVPUSH STA ×4 (12:38→13:22)
[2022-02-23] MEDS ORDERED: Propofol 200 MG/20 ML SDV ONE (16:01)
[2022-02-23] MEDS ORDERED: Dexmedetomidine 200 MCG/2 ML SDV ONE ×2 (16:01→16:02)
[2022-02-23] MEDS ORDERED: Water For Injection, Sterile 20 ML ONE (16:02)
[2022-02-23] MEDS ORDERED: Succinylcholine/Sod PF 100 MG/5 ML SYRINGE IV ONE (16:50)
[2022-02-23 19:20] VITALS: BP 136/62; PULSE 65
== END 2022-02-23 19:10 | disposition home or self-care (01) ==
LOC: MW.ED 11:27 → MW.SDS 17:51 → MW.MS 17:53 → MW.SDS 19:10
PROVIDERS: ATTEND Orthopaedic Surgery
DX: T84.020A Dislocation of internal right hip prosthesis, initial encounter (principal); E78.00 Pure hypercholesterolemia, unspecified; E11.42 Type 2 diabetes mellitus with diabetic polyneuropathy; K21.9 Gastro-esophageal reflux disease without esophagitis; Z88.2 Allergy status to sulfonamides; E66.9 Obesity, unspecified; Z68.30 Body mass index [BMI] 30.0-30.9, adult; Z79.84 Long term (current) use of oral hypoglycemic drugs; Z79.899 Other long term (current) drug therapy; Y83.8 Other surgical procedures as the cause of abnormal reaction of the patient, or of later complication, without mention of misadventure at the time of the procedure
CPT/HCPCS: 27266; 73501; 73502; 76000; J0330; J2270; J2704; J7030

== ENCOUNTER 2022-04-30 10:49 | Emergency (ER) | payer MEDICARE, OTHER ==
[2022-04-30 10:56] VITALS: BP 167/83; PULSE 76
[2022-04-30] MEDS: HYDROmorphone 1 MG/ML Syringe IVPUSH ONE ×2 (11:04→11:59)
[2022-04-30] MEDS: Sodium Chloride 0.9% 1,000 ML IV ONE (11:34)
[2022-04-30] MEDS ORDERED: Ketamine 500 mg/10 ML MDV ONE (11:52)
[2022-04-30] MEDS ORDERED: Propofol 200 MG/20 ML SDV ONE (11:52)
== END 2022-04-30 14:51 | disposition home or self-care (01) ==
LOC: MW.ED 10:49
DX: S73.004A Unspecified dislocation of right hip, initial encounter (principal); E11.621 Type 2 diabetes mellitus with foot ulcer; E78.00 Pure hypercholesterolemia, unspecified; E66.9 Obesity, unspecified; Z68.24 Body mass index [BMI] 24.0-24.9, adult; Z88.2 Allergy status to sulfonamides; Z79.899 Other long term (current) drug therapy; Z79.84 Long term (current) use of oral hypoglycemic drugs; Z90.49 Acquired absence of other specified parts of digestive tract; X58.XXXA Exposure to other specified factors, initial encounter
CPT/HCPCS: 27250; 36415; 72170; 72170-26; 85025; 96374; 96376; 99284-25; J1170; J2704; J3490; J7030

== ENCOUNTER 2022-06-12 13:58 | Emergency (ER) | payer MEDICARE, OTHER ==
[2022-06-12 14:24] VITALS: BP 158/68; PULSE 68
[2022-06-12] MEDS ORDERED: Lidocaine 1% 5 ML VIAL INJECT ONE (14:40)
== END 2022-06-12 16:23 | disposition home or self-care (01) ==
LOC: MW.ED 13:58
DX: S51.011A Laceration without foreign body of right elbow, initial encounter (principal); E11.9 Type 2 diabetes mellitus without complications; E66.9 Obesity, unspecified; Z68.30 Body mass index [BMI] 30.0-30.9, adult; Z88.2 Allergy status to sulfonamides; Z79.899 Other long term (current) drug therapy; Z79.84 Long term (current) use of oral hypoglycemic drugs; Z90.49 Acquired absence of other specified parts of digestive tract; W26.8XXA Contact with other sharp object(s), not elsewhere classified, initial encounter
CPT/HCPCS: 12002; 99282

== ENCOUNTER 2022-06-23 21:40 | Emergency (ER) | payer MEDICARE, OTHER ==
[2022-06-23] MEDS ORDERED: Clindamycin Phosphate in D5W 900 MG in Premix Bag 1 BAG IV ONE ×2 (22:09)
[2022-06-23 23:05] LABS: CARBON DIOXIDE,CO2 25.7 mmol/L (21.0-32.0); POTASSIUM,K 3.8 mmol/L (3.5-5.1)
[2022-06-23 23:30] VITALS: BP 151/71; PULSE 70
== END 2022-06-23 23:31 | disposition home or self-care (01) ==
LOC: MW.ED 21:40
DX: M25.421 Effusion, right elbow (principal); I10 Essential (primary) hypertension; K21.9 Gastro-esophageal reflux disease without esophagitis; E11.9 Type 2 diabetes mellitus without complications; Z79.899 Other long term (current) drug therapy; Z88.2 Allergy status to sulfonamides
CPT/HCPCS: 20605; 36415; 73080; 80053; 85025; 87040; 87070; 87075; 87205; 89050; 89060; 96365; 99283; J3490; 87077; 87186

== ENCOUNTER 2022-08-11 15:02 | Emergency (ER) | payer MEDICARE, OTHER ==
[2022-08-11] MEDS ORDERED: Sodium Chloride 0.9% 2.5 ML Syringe FLUSH PRN (17:17)
[2022-08-11] MEDS ORDERED: Sodium Chloride 0.9% 10 ML Syringe FLUSH PRN (17:17)
[2022-08-11 17:56] LABS: CARBON DIOXIDE,CO2 25.4 mmol/L (21.0-32.0); POTASSIUM,K 4.4 mmol/L (3.5-5.1)
[2022-08-11 18:15] LABS: CORONAVIRUS COVID-19 NAA NEGATIVE (NEGATIVE); INFLUENZA A NAA NEGATIVE (NEGATIVE); INFLUENZA B NAA NEGATIVE (NEGATIVE)
[2022-08-11] MEDS ORDERED: Iopamidol 755 MG/ML 500 ML Multipack Bottle IVPUSH ONE (18:39)
[2022-08-11] MEDS ORDERED: Aspirin 81 MG Tab.Chew PO ONE (20:50)
[2022-08-11] MEDS ORDERED: Heparin Sodium 5,000 Units/ML Vial IVPUSH ONE (21:26)
[2022-08-11] MEDS ORDERED: Heparin Sodium/0.45% NaCl 500 ML IV SCH (21:30)
[2022-08-11] MEDS ORDERED: atorvaSTATin 20 MG Tab PO ONE (21:30)
[2022-08-11 23:28] VITALS: BP 138/73; PULSE 81
[2022-08-12] MEDS ORDERED: Metoprolol Succinate 50 MG Tab.ER PO SCH (09:00)
== END 2022-08-11 23:42 ==
LOC: MW.ED 15:02
DX: I20.0 Unstable angina (principal); E78.00 Pure hypercholesterolemia, unspecified; I10 Essential (primary) hypertension; E11.9 Type 2 diabetes mellitus without complications; E66.9 Obesity, unspecified; Z68.32 Body mass index [BMI] 32.0-32.9, adult; Z88.2 Allergy status to sulfonamides; Z79.899 Other long term (current) drug therapy; Z90.49 Acquired absence of other specified parts of digestive tract; Z20.822 Contact with and (suspected) exposure to COVID-19
CPT/HCPCS: 0240U; 36415; 71045; 71275; 80053; 84484; 85025; 85379; 85730; 93005; 96365; 96366; 96376; 99285; A9270; J1644; J3490; Q9967; 93010

== ENCOUNTER 2022-11-06 16:56 | Emergency (ER) | payer MEDICARE, OTHER ==
[2022-11-06 18:55] VITALS: BP 133/84; PULSE 69
[2022-11-06] MEDS ORDERED: Diphtheria,Pertussis(Acell),Tetanus Vaccine 0.5 ML Syringe IM ONE (19:18)
[2022-11-06] MEDS ORDERED: Lidocaine 1% 5 ML VIAL INJECT ONE (19:19)
== END 2022-11-06 19:55 | disposition home or self-care (01) ==
LOC: MW.ED 16:56
DX: S61.412A Laceration without foreign body of left hand, initial encounter (principal); E78.00 Pure hypercholesterolemia, unspecified; E11.42 Type 2 diabetes mellitus with diabetic polyneuropathy; E66.9 Obesity, unspecified; Z68.30 Body mass index [BMI] 30.0-30.9, adult; Z79.84 Long term (current) use of oral hypoglycemic drugs; Z23 Encounter for immunization; Z88.2 Allergy status to sulfonamides; Z79.899 Other long term (current) drug therapy; W26.0XXA Contact with knife, initial encounter
CPT/HCPCS: 12001; 90471; 90715; 99282-25; J3490

== ENCOUNTER 2023-05-24 19:45 | Emergency (ER) | payer MEDICARE, OTHER ==
[2023-05-24 22:25] VITALS: BP 156/50; PULSE 68
== END 2023-05-24 23:30 | disposition home or self-care (01) ==
LOC: MW.ED 19:45
DX: R06.02 Shortness of breath (principal); E11.9 Type 2 diabetes mellitus without complications; Z88.2 Allergy status to sulfonamides; E66.9 Obesity, unspecified; Z68.31 Body mass index [BMI] 31.0-31.9, adult
CPT/HCPCS: 71046; 71046-26; 99283; 99284